=== PATIENT | male | born 1940 | race Caucasian/White ===

== ENCOUNTER 2018-11-02 15:40 | Emergency (ER) | payer MEDICARE, OTHER ==
--- NOTE | 2018-11-02 16:14 | EDM.PDOC ---
ED HPI GENERAL MEDICAL PROBLEM - General Chief Complaint: Lower Extremity Injury/Pain Stated Complaint: INJURY TO R ANKLE Time Seen by Provider: 11/02/18 15:50 Source of Information: Reports: Patient History Limitations: Reports: No Limitations - History of Present Illness INITIAL COMMENTS - FREE TEXT/NARRATIVE: patient comes into the emergency department with complaint of right ankle discomfort. Patient states he was trying to get into his lumbar seat and ended up hitting his right ankle on a piece of metal and ended up sitting on it. He states that he did notice discomfort and swelling initially. He has been able to ambulate on it since the injury but states that the swelling has continued and now he has some bruising in his toes. He is concerned for he does have type 2 diabetes with decreased sensation in the lower extremity. Patient denies any decrease in his baseline CMS or decrease in range of motion. Denies any other injuries or concerns. Onset: Sudden Location: Reports: Lower Extremity, Right Severity: Mild Improves with: Reports: None Worsens with: Reports: None Context: Reports: Other Associated Symptoms: Reports: No Other Symptoms Right Ankle Pain Score (Numeric/FACES): 2 - Related Data Allergies Allergy/AdvReac Type Severity Reaction Status Date / Time No Known Allergies Allergy Verified 11/02/18 15:58 Review of Systems - Review of Systems Review Of Systems: ROS reveals no pertinent complaints other than HPI. Mouth/Throat: Reports: No Symptoms Respiratory: Reports: No Symptoms Cardiovascular: Reports: No Symptoms Musculoskeletal: Reports: No Symptoms Skin: Reports: No Symptoms Neurological: Reports: No Symptoms Psychiatric: Reports: No Symptoms ED EXAM, GENERAL - Physical Exam Exam: See Below Exam Limited By: No Limitations General Appearance: Alert, WD/WN, No Apparent Distress Neck: Normal Inspection, Supple, Non-Tender Respiratory/Chest: No Respiratory Distress, No Accessory Muscle Use Cardiovascular: Normal Peripheral Pulses, Regular Rate, Rhythm Extremities: Leg Pain (right ankle-moderate ankle swelling, ROM and CMS intact, ecchymosis noted over the ankle region and the proximal end of the tarsals ) Neurological: Alert, Oriented Psychiatric: Normal Affect, Normal Mood Skin Exam: Warm, Dry, Intact, Normal Color Course - Vital Signs Last Recorded V/S: Last Vital Signs Temp 37.2 C 11/02/18 15:40 Pulse 73 11/02/18 15:40 Resp 18 11/02/18 15:40 BP 124/65 11/02/18 15:40 Pulse Ox 97 11/02/18 15:40 - Orders/Labs/Meds Orders: Active Orders 24 hr Category Date Time Status Ankle Min 3V Rt [CR] Stat Exams 11/02/18 15:53 Ordered Departure - Departure Time of Disposition: 16:55 Disposition: Home, Self-Care 01 Condition: Good Clinical Impression: Ankle sprain Qualifiers: Encounter type: initial encounter Involved ligament of ankle: other ligament Laterality: right Qualified Code(s): S93.491A - Sprain of other ligament of right ankle, initial encounter - Discharge Information *PRESCRIPTION DRUG MONITORING PROGRAM REVIEWED*: Not Applicable *COPY OF PRESCRIPTION DRUG MONITORING REPORT IN PATIENT IMELDA: Not Applicable Instructions: Ankle Sprain, [id number], Elastic Bandage and RICE Referrals: Luis Sam PA-C [Primary Care Provider] - Additional Instructions: 1. rest 2. activity and diet 3. ice the area 3-4 times a day for 20 mins at a time 4. elevate the extremity above the level of the heart when resting 5. Follow up in the clinic if not feeling better within 1 week 6. Can use an scarlet wrap for support and compression to help reduce the swelling 7. Call with any questions or concerns. - Problem List Review Problem List Initiated/Reviewed/Updated: Yes - My Orders Last 24 Hours: My Active Orders 11/02/18 15:53 Ankle Min 3V Rt [CR] Stat - Assessment/Plan Last 24 Hours: My Active Orders 11/02/18 15:53 Ankle Min 3V Rt [CR] Stat Assessment:: 1. right ankle injury Plan: 1. Xray completed of right ankle. Results reviewed with the patient. 2. Education regarding OTC pain medication, follow up, RICE, and activity/diet. 3. All questions and concerns addressed prior to discharge.
--- NOTE | 2018-11-02 16:50 | CR ---
[id number] RAD/RAD Ankle Right 3V Min EXAM: RAD Ankle Right 3V Min CLINICAL DATA: TRAUMA COMPARISON: NO PREVIOUS SIMILAR EXAM IS AVAILABLE. FINDINGS: No fracture or dislocation is seen. There is no radiopaque foreign body in the soft tissues. There is no air in the soft tissues. There is no cortical thickening or periosteal reaction either. IMPRESSION: NEGATIVE PLAIN FILM EXAM. Bladimir Miller MD 11/02/18 [id number] Thank you for allowing us to participate in the care of your patient.
== END 2018-11-02 17:00 | disposition home or self-care (01) ==
LOC: VM.ED 15:40
DX: S93.491A Sprain of other ligament of right ankle, initial encounter (principal); W22.8XXA Striking against or struck by other objects, initial encounter
CPT/HCPCS: 73610-RT; 99283-25; 99283-GF

== ENCOUNTER 2021-01-25 10:48 | Emergency (ER) | payer MEDICARE, OTHER ==
--- NOTE | 2021-01-25 11:08 | EDM.PDOC ---
ED HPI GENERAL MEDICAL PROBLEM - General Chief Complaint: Chest Pain Stated Complaint: CHEST PAIN Time Seen by Provider: 01/25/21 10:50 Source of Information: Reports: Patient History Limitations: Reports: No Limitations - History of Present Illness INITIAL COMMENTS - FREE TEXT/NARRATIVE: Patient presents today with ongoing intermittent chest pain times about a week to week and a half that he states is midsternal intermittent at times he rates about a 6 out of 10 that he describes as a count of sharp/dull but does not radiate. He denies any shortness of breath nausea vomiting diaphoresis when the chest pain occurs he said the last for anywhere from 2 to 3 minutes at a time and it may not come or happen again for hours at a time. He does not have any chest pain at this present time but states last episode was about 6 or 7:00 this morning. He saw his primary care provider last week and did mention it they took lab and chest x-ray did not find anything. He had a cardiac cath about 5 years ago which was normal he saw his rn [facility] 2 to 3 years ago for a normal checkup. He has no other complaints at this time states he is normally been healthy he does want to get this checked out Duration: Week(s): Location: Reports: Chest Severity: Mild Improves with: Reports: Other (Time) Associated Symptoms: Reports: No Other Symptoms Chest Pain Score (Numeric/FACES): 3 - Related Data Allergies Allergy/AdvReac Type Severity Reaction Status Date / Time No Known Allergies Allergy Verified 01/25/21 12:29 Home Meds: Home Meds Acetaminophen [Tylenol Arthritis Pain] 650 mg PO ASDIRECTED PRN 11/02/18 [History] Aspirin 81 mg PO DAILY 11/02/18 [History] Fluticasone/Vilanterol [Breo Ellipta 100-25 MCG Inhalation Kit] 1 each IH DAILY 11/02/18 [History] Insulin Aspart [NovoLOG] 10 unit SQ TID 11/02/18 [History] Insulin Degludec [Tresiba] 38 unit SQ DAILY 11/02/18 [History] Insulin Glarg,Human.Rec.Analog [Lantus] 42 unit SQ DAILY 11/02/18 [History] Losartan [Cozaar] 50 mg PO DAILY 11/02/18 [History] Pravastatin [Pravachol] 20 mg PO BEDTIME 11/02/18 [History] Tamsulosin HCl [Flomax] 0.4 mg PO DAILY 11/02/18 [History] hydroCHLOROthiazide [Hydrochlorothiazide] 25 mg PO DAILY 11/02/18 [History] metFORMIN HCl [Metformin HCl] 1,000 mg PO BID 11/02/18 [History] Past Medical History Cardiovascular History: Reports: CAD, High Cholesterol, Hypertension Genitourinary History: Reports: BPH, Other (See Below) Other Genitourinary History: Erectile dysfunction. peyronie's disease Musculoskeletal History: Reports: Other (See Below) Other Musculoskeletal History: radicular low back pain. DJD of hip. plantar fascial fibromatosis Endocrine/Metabolic History: Reports: Diabetes, Type II - Past Surgical History Male Surgical History: Reports: Other (See Below) Other Male Surgeries/Procedures: hemorrhoidectomy ED ROS GENERAL - Review of Systems Review Of Systems: See Below Constitutional: Reports: No Symptoms HEENT: Reports: No Symptoms Respiratory: Reports: No Symptoms Cardiovascular: Reports: Chest Pain. Denies: Dyspnea on Exertion, Edema, Lightheadedness, Orthopnea, Palpitations, PND, Syncope Endocrine: Reports: No Symptoms GI/Abdominal: Reports: No Symptoms : Reports: No Symptoms Musculoskeletal: Reports: No Symptoms Skin: Reports: No Symptoms Neurological: Reports: No Symptoms Psychiatric: Reports: No Symptoms Hematologic/Lymphatic: Reports: No Symptoms Immunologic: Reports: No Symptoms ED EXAM, GENERAL - Physical Exam Exam: See Below Exam Limited By: No Limitations General Appearance: Alert, WD/WN, No Apparent Distress Eye Exam: Bilateral Eye: Normal Inspection, PERRL Ears: Normal External Exam, Normal Canal, Hearing Grossly Normal, Normal TMs Nose: Normal Inspection, Normal Mucosa, No Blood Throat/Mouth: Normal Inspection, Normal Lips, Normal Teeth, Normal Gums, Normal Oropharynx, Normal Voice, No Airway Compromise Head: Atraumatic, Normocephalic Neck: Normal Inspection, Supple, Non-Tender, Full Range of Motion Respiratory/Chest: No Respiratory Distress, Lungs Clear, Normal Breath Sounds, No Accessory Muscle Use, Chest Non-Tender Cardiovascular: Normal Peripheral Pulses, Regular Rate, Rhythm, No Edema, No Gallop, No JVD, No Murmur, No Rub GI/Abdominal: Normal Bowel Sounds, Soft, Non-Tender, No Organomegaly, No Distention Back Exam: Normal Inspection, Full Range of Motion Extremities: Normal Inspection, Normal Range of Motion, Non-Tender, No Pedal Edema, Normal Capillary Refill Neurological: Alert, Oriented, CN II-XII Intact, Normal Cognition, Normal Gait Psychiatric: Normal Affect, Normal Mood Skin Exam: Warm, Dry, Intact, Normal Color, No Rash #1 Interpretation EKG Date: 01/25/21 Time: 11:10 Rhythm: NSR [place]: Normal P-Wave: Present QRS: Normal ST-T: Normal QT: Normal EKG Interpretation Comments: Normal sinus rhythm no acute findings noted intermittent bigeminy Course - Vital Signs Text/Narrative:: CBC BMP troponin chest x-ray EKG Lab work no acute findings noted troponin 6 Secondary to the patient having a normal cardiac cath 5 years ago when seen in his primary rn [facility] 2 to 3 years ago I believe this is not true cardiac in nature. Patient is okay with being discharged and follow-up with primary care provider Luis I spoke with Luis in regards to this he will follow-up outpatient clinic at this time and call for an appointment. Patient was educated if anything changes return to the emergency room Last Recorded V/S: Last Vital Signs Temp 36.8 C 01/25/21 12:39 Pulse 87 01/25/21 12:39 Resp 14 01/25/21 12:39 BP 118/60 01/25/21 12:39 Pulse Ox 95 01/25/21 12:39 - Orders/Labs/Meds Labs: Laboratory Tests 01/25/21 01/25/21 Range/Units 11:20 11:20 WBC 7.2 (4.0-10.0) x10^3/uL RBC 4.51 (4.5-6.0) x10^6/uL Hgb 13.2 L (14.0-18.0) g/dL Hct 39.7 L (40.0-52.0) % MCV 88.0 (78.0-93.0) fL MCH 29.3 (26.0-32.0) pg MCHC 33.2 (32.0-36.0) g/dL RDW Coeff of Tamara 13.0 (10.0-15.0) % Plt Count 342 (130-400) x10^3/uL Immature Gran % (Auto) 0.30 (0.00-0.43) % Neut % (Auto) 73.2 (50.0-80.0) % Lymph % (Auto) 12.8 L (25.0-50.0) % [place] % (Auto) 11.6 H (2.0-11.0) % Eos % (Auto) 2.1 (0.0-4.0) % Baso % (Auto) 0.0 L (0.2-1.2) % Neut # (Auto) 5.2 (1.8-7.7) x10^3/uL Lymph # (Auto) 0.9 L (1.0-4.8) x10^3/uL [place] # (Auto) 0.8 (0.0-0.8) x10^3/uL Eos # (Auto) 0.2 (0.0-0.5) x10^3/uL Baso # (Auto) 0.0 (0.0-0.2) x10^3/uL Immature Gran # (Auto) 0.02 (0.00-0.07) x10^3/uL Sodium 138 (136-145) mmol/L Potassium 3.9 (3.5-5.1) mmol/L Chloride 101 (98-107) mmol/L Carbon Dioxide 28 (21-32) mmol/L Anion Gap 12.9 (5-15) mmol/L BUN 19 H (7-18) mg/dL Creatinine 1.1 (0.70-1.30) mg/dL Est Cr Clr Drug Dosing TNP Estimated GFR (MDRD) > 60 Glucose 170 H (70-99) mg/dL Calcium 8.8 (8.5-10.1) mg/dL Troponin I Cancelled Troponin I High Sens 6 (<=76) ng/L Departure - Departure Time of Disposition: 12:30 Disposition: Home, Self-Care 01 Condition: Good Clinical Impression: Chest pain Instructions: Nonspecific Chest Pain, Adult Referrals: Luis Sam PA-C [Primary Care Provider] - Forms: ED Department Discharge Additional Instructions: Follow-up with your primary care provider Luis in the next couple days call and get an appointment for the next 24 to 48 hours Continue take all medications as directed Return to the emergency room if anything changes or gets worse Sepsis Event Note (ED) - Focused Exam Vital Signs: Vital Signs Temp Pulse Resp BP Pulse Ox 01/25/21 12:39 36.8 C 87 14 118/60 95 01/25/21 10:54 36.8 C 87 14 118/60 95 - Problem List & Annotations (1) Chest pain SNOMED Code(s): 45680460 Code(s): R07.9 - CHEST PAIN, UNSPECIFIED Status: Acute Current Visit: Yes
--- NOTE | 2021-01-25 11:40 | CR ---
[id number] RAD/RAD Chest PA or AP 1V EXAM: RAD Chest PA or AP 1V INDICATION: CP. COMPARISON: January 25, 2021. DISCUSSION: Cardiomediastinal silhouette is normal in size and contour. No infiltrate, effusion, pneumothorax, or edema. Pulmonary hyperinflation. Degenerative changes of the acromioclavicular joints bilaterally. IMPRESSION: No acute cardiopulmonary abnormality. Josh Mittal DO 01/25/21 1139 Thank you for allowing us to participate in the care of your patient.
[2021-01-25 11:44] LABS: ANION GAP 12.9 mmol/L (5-15); CHLORIDE,CL 101 mmol/L (98-107); SODIUM,NA 138 mmol/L (136-145)
== END 2021-01-25 12:48 | disposition home or self-care (01) ==
LOC: VM.ED 10:48
DX: R07.2 Precordial pain (principal); I25.10 Atherosclerotic heart disease of native coronary artery without angina pectoris; I10 Essential (primary) hypertension; N40.0 Benign prostatic hyperplasia without lower urinary tract symptoms; E11.9 Type 2 diabetes mellitus without complications; Z79.82 Long term (current) use of aspirin; Z79.4 Long term (current) use of insulin; Z79.899 Other long term (current) drug therapy
CPT/HCPCS: 36415; 71045; 80048; 84484; 85025; 93005; 93010; 99284; 99285-25